=== PATIENT | female | born 1965 | race Caucasian/White ===

== ENCOUNTER 2023-01-11 02:55 | Emergency (ER) | payer OTHER ==
[~2023-01-11] VITALS: Ht 165.1 cm; Wt 82.6 kg
[~2023-01-11 02:55] MED LIST: ASPIRIN EC81 MG PO; BIOTIN1 M1 PO; CALCIUM600 MG PO; CITALOPRAM HBR20 MG PO; EVENING PRIMRO500 MG PO; FISH OIL 1,0001 EAC1 PO; FLAX SEED OIL1000 MG PO; LEVOTHYROXINE100 MCG PO; LIPITOR10 MG PO; METHOTREXATE2.5 MG PO; MINIVELLE1 EAC1 TD; NIACIN500 M1 PO; VITAMIN B12-FO1 EACH PO; VITAMIN C500 M4 PO
--- OUTSIDE RECORDS SUMMARY | 2023-01-11 02:58 | XMS ---
PreManage Notification: ALEC SHAY Security Die Sinker Apprentice Events No recent Security Events currently on file [facility] There are no care providers on record at this time. Alba has no Care Guidelines for this patient. Han VISIT COUNT (12 MO.) 1 LOIDA Reed TOTAL 1 NOTE: Visits indicate total known visits. ED/C VISIT TRACKING (12 MO.) 01/11/2023 02:56 LOIDA Cortés [place] TYPE: Emergency COMPLAINT: - VOMITING BLOOD INPATIENT VISIT TRACKING (12 MO.) No inpatient visits to display in this time frame [email or web address]
[2023-01-11 03:26] LABS: BASOPHILS 0.9 % (0-2); EOSINOPHILS 0.4 % (0-6); HEMATOCRIT 30.4 % (35.0-50.0); HEMOGLOBIN 9.8 g/dL (12.0-18.0); LYMPHOCYTES 22.1 % (24-44); MCH 27.5 (27-36); MCHC 32.3 g/dl (30-36); MCV 85.2 fl (81-99); MONOCYTES 8.1 % (0-12); NEUTROPHILS 68.5 % (39-80); PLATELET COUNT 100 K/uL (140-440); RBC 3.57 M/ul (4.3-5.7); RDW 15.1 (10.5-15.0)
[2023-01-11 03:29] LABS: INR 1.29 (0.80-1.30); PROTIME 15.5 Sec (11.2-14.2)
[2023-01-11 03:35] LABS: ALBUMIN 2.7 g/dL (3.4-5.0); ALBUMIN/GLOBULIN RATIO 0.73 (1.1-2.4); ANION GAP 10.8 (7-21); BILIRUBIN, TOTAL 0.5 ng/dL (0.2-1.0); CALCIUM 8.1 mg/dL (8.5-10.1); CREATININE, SERUM 0.72 mg/dL (0.55-1.02); POTASSIUM 3.8 mmol/L (3.5-5.1); PROTEIN, TOTAL 6.4 g/dL (6.4-8.2)
[2023-01-11 04:23] LABS: HEMATOCRIT 28.3 % (35.0-50.0); HEMOGLOBIN 9.2 g/dL (12.0-18.0); MCH 27.6 (27-36); MCHC 32.6 g/dl (30-36); MCV 84.7 fl (81-99); RBC 3.34 M/ul (4.3-5.7); RDW 15.1 (10.5-15.0)
[2023-01-11] MEDS ORDERED: ONDANSETRON ODT8 MG PO ×2 (04:47→05:17)
[2023-01-11] MEDS ORDERED: PROTONIX40 MG PO ×2 (04:47→05:17)
[2023-01-11] MEDS ORDERED: LEVOTHYROXINE88 MC1 (04:54)
[2023-01-11] MEDS ORDERED: GABAPENTIN300 MG (04:56)
[2023-01-11] MEDS ORDERED: CYCLOSPORINE1 EACH (04:57)
[2023-01-11] MEDS ORDERED: FLOVENT DISKUS50 MCG (04:57)
[2023-01-11] MEDS ORDERED: HYDROXYCHLOROQ200 MG (04:58)
[2023-01-11] MEDS ORDERED: DOTTI1 EAC4 (04:59)
[2023-01-11] MEDS ORDERED: URSODIOL300 MG (04:59)
[2023-01-11] MEDS ORDERED: LIOTHYRONINE SO5 MCG (05:00)
[2023-01-11] MEDS ORDERED: PRAMIPEXOLE0.125 MG (05:01)
[2023-01-11 05:09] VITALS: BP 118/56
== END 2023-01-11 05:19 | disposition home or self-care (01) ==
LOC: ED 02:55
PROVIDERS: Family Medicine
DX: K22.6 Gastro-esophageal laceration-hemorrhage syndrome (principal); Z88.2 Allergy status to sulfonamides; Z88.8 Allergy status to other drugs, medicaments and biological substances; Z79.82 Long term (current) use of aspirin; Z79.899 Other long term (current) drug therapy; Z79.890 Hormone replacement therapy
CPT/HCPCS: 36415; 80053; 85025; 85027; 85610; 96374; 96375; 99284-25; C9113; J0780; J2405

== ENCOUNTER 2023-03-26 07:36 | Day surgery (SDC) | payer OTHER, BC ==
[~2023-03-26 07:36] MED LIST changes: +ADVANCED PROBI625 MG PO; +ALPRAZOLAM0.25 MG PO; +CRANBERRY250 MG PO; +CYCLOSPORINE1 EACH; +CYTOMEL5 MCG PO; +DOTTI1 EAC4; +FLOVENT DISKUS50 MCG; +FLOVENT DISKUS50 MCG INH; +FOLIC ACID1 MG PO; +GABAPENTIN300 MG; +HYDROXYCHLOROQ200 MG; +LEVOTHYROXINE88 MC1; +LIOTHYRONINE SO5 MCG; +MAGNESIUM250 MG PO; +MILK THISTLE175 MG PO; +MINIVELLE1 EAC3 TD; +ONDANSETRON ODT8 MG PO; +POTASSIUM; +PRAMIPEXOLE0.125 MG; +PROTONIX40 MG PO; +URSODIOL300 MG; +VALACYCLOVIR1000 MG PO; +VENTOLIN HFA18 GM INH; +ZINC50 MG PO; +[UNRECOGNIZED DRUG - OTHER]
[2023-03-26 07:56] VITALS: BP 144/79
[2023-03-26 10:28] VITALS: BP 117/67
--- NOTE | 2023-03-26 10:32 | NUR ---
03/26/23 1032 Sheets,Madelin 1001 PT ARRIVED TO PACU AND EASILY WAKES. PT REORIENTED TO PACU. PT DENEIS CONCERNS. 1027 PT WAKES AND HOB INCREASED, PT SIPPING SODA PER REQUEST. AT BEDSIDE AND ALL QUESTIONS ANSWERED.
--- NOTE | 2023-03-26 13:14 | OR ---
[facility] [address], [place] [address] Signed DATE OF OPERATION: 03/26/2023 SURGEON: Isrrael Thomas MD PREOPERATIVE DIAGNOSES: 1. Hematemesis in November or December of 2022. 2. Sjgren's syndrome. 3. Primary biliary cirrhosis. 4. Pulmonary fibrosis. POSTOPERATIVE DIAGNOSES: 1. Moderate esophageal varices. 2. Moderate gastroduodenitis. 3. Periampullary duodenal diverticulum. PROCEDURE: EGD with CLOtest and biopsies of the antrum. ESTIMATED BLOOD LOSS: None. INDICATIONS: Alec is a 58-year-old female with a long history of Sjogren's syndrome. She now has pulmonary fibrosis along with her primary biliary cirrhosis. She had an ERCP in the past requiring a sphincterotomy. They were trying to evaluate her bile ducts. She went through quite a bit of pancreatitis and ended up in the hospital. She told me she is adopted and has no knowledge of her family history. Our local gastroenterologists have all retired and moved away. Therefore, she has been asked to see me as a local general surgeon for consideration of a repeat upper endoscopy. We tried to track down her previous records without much success. Unfortunately, that office is now in transition. No further hematemesis. She stopped the aspirin. She took Protonix for a little while, but then she discontinued it. Overall, she thinks she is doing fine. In the office, I gave her a pamphlet on upper endoscopy. We had reviewed that together in detail. She understands there is risk including, but not limited to gas bloating, crampy abdominal pain, bleeding, perforation requiring surgery, and missed diagnosis. We also reviewed the need for IV conscious sedation. She understands an adult person has to take her home afterwards. In the meantime, she has been trying to find a assembler clip on sunglasses in [facility] or [facility] without success. She had expressed understanding and wished to proceed. Electronically Signed By: ISRRAEL THOMAS MD 03/26/23 1314 PATIENT NAME: ALEC SHAY OPERATIVE REPORT DATE OF : 61 REPORT #: [id number] PHYSICIAN: ISRRAEL THOMAS MD PCP: MARCIA RANKIN REPORT IS CONFIDENTIAL AND NOT TO BE RELEASED WITHOUT AUTHORIZATION [facility] [address] [place] [id number] Signed PROCEDURE NOTE: Alec was taken into our endoscopy suite and placed in the supine semi-recumbent position. The posterior oropharynx was anesthetized with lidocaine spray. A bite block was utilized for the case. She was given a total of 6 mg of Versed and 100 mcg of fentanyl to cover the case. The adult gastroscope was introduced and advanced under direct visualization of the camera. She has moderately prominent distal esophageal varices. We passed the scope out into her stomach and into the duodenum. She has some inflammatory changes and congestion in the duodenum, pyloric bulb and her stomach. It looks like she has a periampullary duodenal diverticulum. It looks like we could see a small ampulla on the edge of that diverticulum. Back in the stomach, we took a biopsy of the antrum for CLOtest as well as pathologic review. Upon retroflexion of the scope, we do not see an obvious hiatal hernia. No obvious gastric varices. The scope was withdrawn up to the area of the GE junction, which was compliant without stricture. She has varices starting at the GE junction and traveling up through the distal esophagus. She has a standard three columns and some additional smaller varices as well. We have no carver hand at our hospital, so that was not performed. The middle and upper esophagus were unremarkable. After this, the gas was suctioned out and the gastroscope removed. Alec tolerated the procedure quite well. RECOMMENDATIONS: Alec will follow up in my office in 7 to 14 days to review her results. She needs to pursue assembler clip on sunglasses in our region. She would be crabtree at some point to see the meat loiner at [facility] and [facility] as she may or may not be a candidate for liver transplant at some point in her life. Isrrael Thomas MD ALB/MODL /[id number] cc: GALE Aguila MD Copies: MARCIA RANKIN Electronically Signed By: ISRRAEL THOMAS MD 03/26/23 1314 PATIENT NAME: ALEC SHAY OPERATIVE REPORT DATE OF : 61 REPORT #: [id number] PHYSICIAN: ISRRAEL THOMAS MD PCP: MARCIA RANKIN REPORT IS CONFIDENTIAL AND NOT TO BE RELEASED WITHOUT AUTHORIZATION [address] [address] Signed ISRRAEL THOMAS MD ~ Electronically Signed By: ISRRAEL THOMAS MD 03/26/23 1314 PATIENT NAME: ALEC SHAY OPERATIVE REPORT DATE OF : 61 REPORT #: [id number] PHYSICIAN: ISRRAEL THOMAS MD PCP: MARCIA RANKIN REPORT IS CONFIDENTIAL AND NOT TO BE RELEASED WITHOUT AUTHORIZATION
--- NOTE | 2023-03-29 15:05 | PATH ---
[facility] [address] [facility] [place], [place] [address] Signed SPECIMEN(S): A ANTRUM/ANTRAL BIOPSY SPECIMEN SOURCE: A. ANTRUM/ANTRAL BIOPSY CLINICAL HISTORY: Hematemesis, Sjogren's syndrome/gastroduodenitis, esophageal varices FINAL PATHOLOGIC DIAGNOSIS: Antrum / antral biopsy: - Benign gastric-type mucosa with mild chronic gastritis. - A Helicobacter pylori immunostain is negative for organisms. VR:[facility] MICROSCOPIC EXAMINATION: Histologic sections of all submitted blocks are examined by light microscopy. These findings, together with the gross examination, support the pathologic diagnosis. A Helicobacter pylori immunostain is performed with appropriate positive and negative controls on block A1 and is negative for organisms. JVR:[facility] GROSS DESCRIPTION: The specimen, labeled and designated "Shay, biopsy, antrum," is received in formalin and consists of one hassan soft tissue fragment, 0.4 cm. Entirely submitted in (A1). (under the direct supervision of a pathologist) The Gross Description was prepared using a voice recognition system. The report was reviewed for accuracy; however, sound-alike word errors, addition and/or deletions may occur. If there is any question about this report, please contact Client Services. ADDITIONAL NOTES: Immunohistochemical and/or in situ hybridization studies if performed in this case included appropriate positive controls that reacted as expected. This test was developed and its performance characteristics determined by [facility]. It has not been cleared or approved by the U.S. Food and Drug Administration. The FDA has determined that such clearance or approval is not necessary. This test is used for clinical purposes. It should not be regarded as investigational or for research. [facility] is certified under the PATIENT NAME: ALEC SHAY PATHOLOGY DATE OF : 61 REPORT #: [id number] PHYSICIAN: [facility] PATH[facility] PCP: MARCIA RANKIN REPORT IS CONFIDENTIAL AND NOT TO BE RELEASED WITHOUT AUTHORIZATION [facility] [address] [place], [place] [address] Signed Clinical Laboratory Improvement Amendments of 1988 (CLIA) as qualified to perform high complexity clinical laboratory testing. PERFORMING LABORATORY: Technical component was performed by [facility], [address] [place] [address] (CLIA# [id number]). Professional interpretation was performed by [facility], [address] [place] [id number] (CLIA#: [id number]). Diagnostician: Brian Farmer MD Pathologist Electronically Signed 03/29/2023 Copies: ~ PATIENT NAME: ALEC SHAY PATHOLOGY DATE OF : 61 REPORT #: [id number] PHYSICIAN: [facility] PCP: MARCIA RANKIN REPORT IS CONFIDENTIAL AND NOT TO BE RELEASED WITHOUT AUTHORIZATION
== END 2023-03-26 10:45 | disposition home or self-care (01) ==
LOC: DS 07:36
PROVIDERS: ATTEND Colon & Rectal Surgery
PROC: 0DB78ZX Excision of Stomach, Pylorus, Via Natural or Artificial Opening Endoscopic, Diagnostic (ICD-10-PCS; principal; 2023-03-26 09:00)
DX: K29.90 Gastroduodenitis, unspecified, without bleeding (principal); I85.00 Esophageal varices without bleeding; J84.10 Pulmonary fibrosis, unspecified; K74.5 Biliary cirrhosis, unspecified; M35.00 Sjogren syndrome, unspecified; E03.9 Hypothyroidism, unspecified; Z79.899 Other long term (current) drug therapy; Z88.2 Allergy status to sulfonamides; Z88.1 Allergy status to other antibiotic agents
CPT/HCPCS: 36415; 87077; 99153; G0500; J2250; J3010; J7121

== ENCOUNTER 2023-11-17 16:39 | Inpatient (IN) | payer OTHER, BC ==
[~2023-11-17] VITALS: Ht 165.1 cm; Wt 85.5 kg
[~2023-11-17 16:39] MED LIST changes: -CYCLOSPORINE1 EACH; +CYCLOSPORINE1 EACH OU; -GABAPENTIN300 MG; +GABAPENTIN300 MG PO; -HYDROXYCHLOROQ200 MG; +HYDROXYCHLOROQ200 MG PO; -URSODIOL300 MG; +URSODIOL300 MG PO
[2023-11-17] MEDS ORDERED: DOXYCYCLINE MO100 MG PO (17:02)
[2023-11-17] MEDS ORDERED: FLUTICASONE-SA1 EAC4 (17:05)
[2023-11-17] MEDS ORDERED: ACTEMRA AC162 MG/0.9 SQ (17:06)
[2023-11-17] MEDS ORDERED: XDEMVY10 ML OU (17:06)
[2023-11-17] MEDS ORDERED: MIEBO 100% EYE D3 ML OU (17:06)
[2023-11-17] MEDS ORDERED: SODIUM CHLORIDE 0.9% 1,000 ML IV ONE (18:00)
[2023-11-17] MEDS ORDERED: CEFTRIAXONE/SODIUM CHLORIDE 2 GM/100 ML PIGGYBACK IV ONE (18:00)
[2023-11-17] MEDS ORDERED: DAPTOmycin 500 MG/10 ML VIAL IV ONE (18:00)
[2023-11-17 18:07] LABS: BILIRUBIN, URINE NEGATIVE (negative); BLOOD/HGB, URINE NEGATIVE (Negative); KETONE, URINE NEGATIVE (Negative); LEUK ESTERASE, URINE NEGATIVE (negative); NITRITE, URINE NEGATIVE (negative)
[2023-11-17 18:10] LABS: PARTIAL THROMBOPLASTIN TIME 35.5 Sec (22.9-41.3)
[2023-11-17 18:13] LABS: HEMOGLOBIN 14.6 g/dL (12.0-18.0); RDW 14.4 (10.5-15.0)
[2023-11-17 18:14] LABS: ALBUMIN 3.1 g/dL (3.4-5.0); ALBUMIN/GLOBULIN RATIO 0.91 (1.1-2.4); ANION GAP 6.9 (7-21); BILIRUBIN, TOTAL 1.1 ng/dL (0.2-1.0); BUN/CREATININE RATIO 15.58 (6.0-28.6); CALCIUM 8.5 mg/dL (8.5-10.1); CREATININE, SERUM 0.77 mg/dL (0.55-1.02); POTASSIUM 3.9 mmol/L (3.5-5.1); PROTEIN, TOTAL 6.5 g/dL (6.4-8.2)
[2023-11-17 18:15] LABS: BASOPHILS 0.3 % (0-2); EOSINOPHILS 3.7 % (0-6); HEMATOCRIT 43.1 % (35.0-50.0); LYMPHOCYTES 10.6 % (24-44); MCHC 33.9 g/dl (30-36); MCV 97.2 fl (81-99); MONOCYTES 4.8 % (0-12); NEUTROPHILS 80.6 % (39-80); RBC 4.43 M/ul (4.3-5.7)
[2023-11-17 18:18] LABS: INR 1.27 (0.80-1.30); PROTIME 15.2 Sec (11.2-14.2)
[2023-11-17 18:30] LABS: PLATELET COUNT 41 K/uL (140-440)
[2023-11-17 18:38] LABS: LACTIC ACID, BLOOD 0.7 mmol/L (0.4-2.0)
[2023-11-17] MEDS ORDERED: ondansetron HCL 4 MG/2 ML VIAL IV PRN (19:30)
[2023-11-17] MEDS ORDERED: OXYCODONE HCL 5 MG TAB PO PRN (19:30)
[2023-11-17] MEDS ORDERED: SODIUM CHLORIDE 0.9% 1,000 ML IV SCH (19:30)
--- NOTE | 2023-11-17 20:06 | NUR ---
RECEIVED VERBAL REPORT FROM ED RN AND pt TRANSFERRED VIA ED BED FROM ED TO MS ROOM #113. pt ORIENTED TO ROOM, CALL LIGHT AND PERSONAL BELONGINGS IN REACH. pt'S HOME MEDICATIONS MIXED IN WHITE PILL BOTTLE IN pt ROOM LOCK BOX. PER pt-MEDS ARE MIX OF TYLENOL, MIRAPEX, AND GABAPENTIN. IV FLUIDS INFUSING DIRECTED, IV SITE WNL. ADMISSION COMPLETED. FRESH ICE WATER AND SODA/JUICE DRINK PROVIDED. PRIMARY RN HILARIO IN ROOM COMPLETING EVENING CARES/ASSESSMENT.
[2023-11-17 20:09] VITALS: BP 134/64
[2023-11-17] MEDS ORDERED: ALBUTEROL SULFATE 0.083% 3 ML VIAL INH PRN (20:45)
[2023-11-17] MEDS ORDERED: MELATONIN 3 MG TAB PO PRN (21:00)
--- NOTE | 2023-11-17 21:14 | NUR ---
COOPERATIVE WITH ADMIT QUESTIONS AND ASSESSMENT. ON ROOM AIR, ALERT AND ORIENTED. ALLEVYN APPLIED TO SCABS LEFT FOREARM, L FIRST FINGER R FINGERS, CELLULITIES REDNESS/ERYTHEMA LLE, MARKED. TOLERATD WELL, FAINT PULSE, VERY TENDER TO TOUCH. WAS MEDICATED WITH 5MG OXYCODONE PO. UP TO BSC, SBA, VOIDED, HAD LARGE FORMED BM. BACK TO BED. TOLERATED WELL. IVF INFUSING RAC. BROUGHT FOOD, ATE 100%, TOLERATD WELL, NO N/V. PT HAS LUNG DZ AND USES PUFFER NOT AVAILABLE FOR US AT [facility], WILL BRING. ORIENTED TO ROOM.
[2023-11-17 22:39] VITALS: BP 134/64
--- NOTE | 2023-11-17 22:40 | NUR ---
PT WALKED TO [facility] WITH FARM MANAGER EARLIER, DID OWN ORAL CARE, BACK TO BED, TOLERATED WWELL. AT THIS TIME, IN BED, TURNS AND REPOSITIONS SELF IN BED. ROOM AIR. IVF INFUSING RA, CELLULITIS L LEG, ELEVATED WITH PILLOWS. BED ALRM NURSING JUDGEMENT FOR TONIGHT ONLY
[2023-11-18] VITALS (9 sets, daily range): BP systolic 107–136; BP diastolic 55–63
--- NOTE | 2023-11-18 00:18 | NUR ---
Resting, eyes closed, on room air, R leg elevated in pillows. IVF infusing
--- NOTE | 2023-11-18 02:18 | NUR ---
Awake, cooperative with vitals and assessment. Up to BRP, tolerated fair, voided, medium yellow colored urine. does own hussain care. Back to bed. On room air, clear lungs, no SOB with exertion noted. IVF infusing RAC. Decreased erythema to upper L mid calf, as visually noted from marking. Elevated with pillows. No n/v. tolerating liquids well. no c/o pain
--- NOTE | 2023-11-18 05:23 | NUR ---
Used call light. Up to BRP with 1PA/FWW, voided QS, does own hussain care. Back to bed tolerated fair. Was medicated with 1 Oxycodoen 5mg po c/o 8/10 L leg pain, decreaesd erythema below knee area noted but increased on back of leg old and new areas marked, edema and tenderness still present. elevated in pillows, tolerating liquids well. IVF infusing, fresh fluids and warm blanket given on requests.
[2023-11-18 05:31] LABS: BASOPHILS 0.4 % (0-2); EOSINOPHILS 3.6 % (0-6); HEMATOCRIT 37.9 % (35.0-50.0); HEMOGLOBIN 12.9 g/dL (12.0-18.0); LYMPHOCYTES 13.6 % (24-44); MCH 33.1 (27-36); MCHC 34.1 g/dl (30-36); MCV 97.1 fl (81-99); NEUTROPHILS 77.4 % (39-80); RBC 3.91 M/ul (4.3-5.7); RDW 14.6 (10.5-15.0)
[2023-11-18 05:48] LABS: INR 1.4 (0.80-1.30); PROTIME 16.3 Sec (11.2-14.2)
[2023-11-18 05:56] LABS: ALBUMIN 2.5 g/dL (3.4-5.0); ALBUMIN/GLOBULIN RATIO 0.83 (1.1-2.4); ANION GAP 7.6 (7-21); BILIRUBIN, TOTAL 0.9 ng/dL (0.2-1.0); BUN/CREATININE RATIO 12.67 (6.0-28.6); CALCIUM 7.9 mg/dL (8.5-10.1); CREATININE, SERUM 0.71 mg/dL (0.55-1.02); MAGNESIUM 1.8 mg/dL (1.8-2.4); PHOSPHORUS, INORGANIC 4.1 mg/dL (2.5-4.9); POTASSIUM 3.6 mmol/L (3.5-5.1); PROTEIN, TOTAL 5.5 g/dL (6.4-8.2)
[2023-11-18 06:06] LABS: PLATELET COUNT 29 K/uL (140-440)
--- NOTE | 2023-11-18 07:15 | NUR ---
RECIEVED REPORT FROM KRISTY RICH. PT UP UTILIZING BR W/ MIKAELA.
--- NOTE | 2023-11-18 07:24 | NUR ---
DID HRLY ROUNDING ON PT. REFILLED HER WATER. I ASKED PT IF SHE WANTED TO BE UP IN THE CHAIR FOR BREAKFAST PT SAID NO THAT SHE WOULD FOR LUNCH. PT DIDNT NEED ANYTHING ELSE AND CALL LIGHT IS WITHIN REACH.
--- NOTE | 2023-11-18 08:20 | NUR ---
pt resting in bed. pt req home medications. up to br, 1 pa w fww. up to chair now. r. leg elevated w 2 pillows. pt declined meal tray and states "i asked my to bring in oatmeal". pt provided menu. declines any needs at this time, call light in reach.
--- NOTE | 2023-11-18 09:50 | NUR ---
PATIENT ALERT AND ORIENTED, SITTING UP IN RECLINER. HER SPOUSE IS IN ROOM WELL. PATIENT LIVES IN HOUSE, HAS STAIRS. STATES SHE HAS NO ISSUES WITH THE STAIRS. SHE HAS NO DME. SHE REMAINS ABLE TO DRIVE AT [place]EL[place]. PATIENT HAS NO FINANCIAL DIFFICULTIES. SHE REMAINS ABLE TO PAY UTILITIES, OBTAIN FOOD AND MEDICATIONS. PATIENT CURRENTYL HAS NO NEEDS AT HOME AND WILL NOTIFY STAFF IF THAT CHANGES.
--- NOTE | 2023-11-18 09:57 | NUR ---
UR CLINICAL REVIEW[place] [facility] [place] [facility] INPT 11/17/23 @ 1927 ORDER MATCHES REG RECORDS SENT TO [facility] FOR AUTH REVIEW DISCHARGE TO HOME WHEN STABLE 11/21/23
[2023-11-18] MEDS ORDERED: OXYCODONE HCL 5 MG TAB PO PRN (10:00)
--- NOTE | 2023-11-18 10:07 | NUR ---
PATIENT GIVEN 10MG OF PO OXYCODONE FOR 7/10 LEFT LEG PAIN.
[2023-11-18] MEDS ORDERED: PREDNISONE20 MG PO (10:35)
--- NOTE | 2023-11-18 11:09 | NUR ---
PT UP TO BR 1 PA W FWW. BACK TO CHAIR. R. AC IV DC'D DUE TO IV OCCLUSION OCCURING DUE TO BEING POSITIONAL. IV STARTED L. WRIST 20 G, 2 ATTEMPTS. ASSESSMENT COMPLETE. DENIES ANY FURTHER NEEDS, CALL LIGHT IN REACH.
[2023-11-18] MEDS ORDERED: PRAMIPEXOLE D0.25 MG PO (11:10)
[2023-11-18] MEDS ORDERED: NADOLOL40 MG PO (11:17)
[2023-11-18] MEDS ORDERED: MONTELUKAST SOD10 MG PO (11:19)
[2023-11-18] MEDS ORDERED: SYNTHROID88 MCG PO (11:22)
[2023-11-18] MEDS ORDERED: PANTOPRAZOLE SO40 MG PO (11:24)
--- NOTE | 2023-11-18 11:33 | NUR ---
PLAN TO KEEP PATIENT OVERNIGHT, RESCHEDULED MAMMOGRAM FOR Nov.26 AT 1200. PATIENT NOTIFIED. Dre PEARSON RN, NOTIFIED WELL.
[2023-11-18] MEDS ORDERED: PHARMACY RENAL DOSE ADJUSTMENT 1 DOSE MISC PO SCH (12:00)
[2023-11-18] MEDS ORDERED: ALBUTEROL SULFATE 0.083% 3 ML VIAL INH SCH ×2 (12:30)
[2023-11-18] MEDS ORDERED: BUDESONIDE 0.5 MG/2 ML VIAL INH SCH ×2 (12:30)
--- NOTE | 2023-11-18 12:56 | NUR ---
PT CALL LIGHT ANSW. PT BACK TO CHAIR FROM BR. Makayla BRIGGS W PILLOW. PT DENIES ANY NEEDS, CALL LIGHT
--- NOTE | 2023-11-18 13:06 | NUR ---
EYE DROPS ADMIN PER EMAR. NEW BAG OF NS HUNG AT 125 ML/HR. DENIES ANY FURTHER NEEDS, CALL LIGHT IN REACH
--- NOTE | 2023-11-18 13:48 | NUR ---
PT WAS UP IN CHAIR WHEN I TOOK HER VITALS AND ASKED IF I CAN HELP HER GET BACK TO BED. PT DIDNT NEED ANYTHING ELSE AND CALL LIGHT IS WITHIN REACH.
[2023-11-18] MEDS ORDERED: PANTOPRAZOLE SODIUM 40 MG TABEC PO SCH (14:12)
--- NOTE | 2023-11-18 14:22 | NUR ---
VISITED DURING SPIRITUAL CARE ROUNDS. PT TALKED OF FAMILY; STRONG RELATIONAL RESOURCES EVIDENCED, REQUESTED PRAYER. CHILDHOOD DEVELOPMENT TEACHER PROVIDED SUPPORTIVE PRESENCE, HOSPITALITY, PRAYER. PT EXPRESSED GRATITUDE.
--- NOTE | 2023-11-18 14:40 | NUR ---
MED REC COMPLETE
--- NOTE | 2023-11-18 15:17 | NUR ---
PT RESTING IN BED. ASSESSMENT COMPLETE. PT C/O PAIN 09/01 IN LLE. PAIN MEDICATION ADMIN PER EMAR. DENIES ANY NEEDS AT THIS TIME, CALL LIGHT IN REACH.
[2023-11-18] MEDS ORDERED: PRAMIPEXOLE DIHYDROCHLORIDE 0.5 MG TAB PO SCH (17:00)
[2023-11-18] MEDS ORDERED: PRAMIPEXOLE DIHYDROCHLORIDE 0.25 MG TAB PO SCH (17:00)
--- NOTE | 2023-11-18 17:33 | NUR ---
PT IN BED, FRIEND VISITNG AT BEDSIDE. MEDICATION ADMIN PER EMAR. PT UP TO BR, SBA W FWW. BACK TO BED. MEAL TRAY AT SIDE OF BED. DENIES ANY NEEDS AT THIS TIME, CALL LIGHT IN REACH
[2023-11-18] MEDS ORDERED: DAPTOmycin 500 MG/10 ML VIAL IV SCH (18:00)
[2023-11-18] MEDS ORDERED: CEFTRIAXONE/SODIUM CHLORIDE 2 GM/100 ML PIGGYBACK IV SCH (18:00)
--- NOTE | 2023-11-18 18:22 | NUR ---
IV PUMP INFUSED AMOUNT CLEARED AND DOCUMENTED IN I'S AND O'S
--- NOTE | 2023-11-18 20:14 | NUR ---
c/o 7/10 L leg pain, medicated with Oxycodone 10mg po. Up to BRP, 1PA/FWW, L leg painful tender, erythema present, improved from this am but more redness noted back of leg past marking done on admit. On room air. tolerating liquids well.
[2023-11-18] MEDS ORDERED: HYDROXYCHLOROQUINE SULFATE 200 MG TAB PO SCH (21:00)
[2023-11-18] MEDS ORDERED: GABAPENTIN 300 MG CAP PO SCH ×2 (21:00)
--- NOTE | 2023-11-19 00:17 | NUR ---
ASSISTED TO BRP, VOIDED, BACK TO BED, TOLERATED FAIR. 1PA/FWW, EDEMA/ERYTHEMA TO LLE NO CHNGES, ELEVATED IN PILLOWS. IVF INFUSING
--- NOTE | 2023-11-19 02:01 | NUR ---
RESTING, NO S/SX DISTRESS, IVF INFUSING, L LEG ELEVATED
[2023-11-19 04:31] VITALS: BP 140/73
[2023-11-19 05:45] LABS: HEMATOCRIT 38.9 % (35.0-50.0); HEMOGLOBIN 13.1 g/dL (12.0-18.0); MCH 32.8 (27-36); MCHC 33.8 g/dl (30-36); MCV 97.2 fl (81-99); RDW 14.4 (10.5-15.0)
[2023-11-19 06:00] LABS: PLATELET COUNT 31 K/uL (140-440)
[2023-11-19] MEDS ORDERED: LIOTHYRONINE SODIUM 5 MCG TAB PO SCH (06:00)
[2023-11-19] MEDS ORDERED: LEVOTHYROXINE SODIUM 88 MCG TAB PO SCH (06:00)
[2023-11-19 06:01] VITALS: BP 140/73
[2023-11-19 06:04] LABS: ALBUMIN 2.5 g/dL (3.4-5.0); ALBUMIN/GLOBULIN RATIO 0.83 (1.1-2.4); ANION GAP 8.6 (7-21); BILIRUBIN, TOTAL 0.8 ng/dL (0.2-1.0); BUN/CREATININE RATIO 9.83 (6.0-28.6); CALCIUM 8.1 mg/dL (8.5-10.1); CREATININE, SERUM 0.61 mg/dL (0.55-1.02); POTASSIUM 3.6 mmol/L (3.5-5.1); PROTEIN, TOTAL 5.5 g/dL (6.4-8.2)
[2023-11-19 06:19] LABS: BANDS, MANUAL DIFF 3; BASOPHILS, MANUAL DIFF 1; EOSINOPHILS, MANUAL DIFF 6; LYMPHOCYTES, MANUAL DIFF 12; MONOCYTES, MANUAL DIFF 3; NEUTROPHILS, MANUAL DIFF 75
--- NOTE | 2023-11-19 07:17 | NUR ---
BEDSIDE REPORT RECEIVED FROM KRISTY RIHC. PT AWAKE AND ALERT IN BED. PT ASSISTED TO BATHROOM WITH SBA AND FWW. TOLERATES ACTIVITY WELL.
[2023-11-19] MEDS ORDERED: PRAMIPEXOLE DIHYDROCHLORIDE 0.25 MG TAB PO SCH (08:00)
--- NOTE | 2023-11-19 08:17 | NUR ---
PATIENT IN CHAIR AT THIS TIME. CALL LIGHT WITHIN REACH, NO FURTHER NEEDS AT THIS TIME.
[2023-11-19] MEDS ORDERED: GABAPENTIN 300 MG CAP PO SCH (09:00)
[2023-11-19] MEDS ORDERED: CITALOPRAM HYDROBROMIDE 20 MG TAB PO SCH (09:00)
[2023-11-19 09:07] VITALS: BP 127/70
--- NOTE | 2023-11-19 09:20 | NUR ---
PATIENT IN CHAIR AT THIS TIME. VITALS AND I&O'S CHARTED. CALL LIGHT WITHIN REACH, NO FURTHER NEEDS AT THIS TIME.
--- NOTE | 2023-11-19 10:39 | NUR ---
PATIENT NEEDED TO USE BATHROOM. ORNITHOLOGY TEACHER ASSISTED PATIENT WITH IV POLE, ORNITHOLOGY TEACHER CHARTED WHAT PATIENT HAD VOIDED. CALL LIGHT WITHIN REACH, NO FURTHER NEEDS AT THIS TIME.
--- NOTE | 2023-11-19 11:40 | NUR ---
Spoke with Sheryl. She plans on dc today. She plans on IV antibiotics through OP in DS. Pt complains of foot still painful and has been using a walker here. She would like a walker at home. Dr. Calderon notified and ordered. Pt would like to use [facility]. I will send the face sheet, RX, H&P, and dc summary when Dr. Calderon completes for walker to be delivered at pts home.
--- NOTE | 2023-11-19 11:49 | NUR ---
PT RETURNS TO MED-SURG FROM IMAGING PROCEDURE. PT TO BED. CALL LIGHT AND BELONGNINGS IN REACH.
[2023-11-19] MEDS ORDERED: CEFTRIAXONE2 G1 IV (13:26)
[2023-11-19] MEDS ORDERED: DAPTOMYCIN500 MG IV (13:27)
[2023-11-19] MEDS ORDERED: OXYCODONE HCL5 MG PO (13:38)
[2023-11-19 14:07] VITALS: BP 130/72
--- NOTE | 2023-11-19 14:20 | NUR ---
DISCUSSED DISCHARGE INSTRUCTIONS WITH PT, PT VERBALIZES UNDERSTANDING. IV FLUHSED WITH 10 CC OF NS, CHG CAP PUT IN PLACE. IV WRAPPED WITH COBAN. EDUCATION PROVIDED TO PT ON IV CARE AT HOME, VERBALIZES UNDERSTANDING. PT TO RETURN TO DAY SURGERY TOMORROW FOR IV ANTIBIOTICS. PT DRESSES SELF.
--- NOTE | 2023-11-19 14:37 | NUR ---
PT LEAVES UNIT VIA WHEELCHAIR WITH BELONGINGS. PT ESCORTED BY THIS RN TO PRIVATE CAR DRIVEN BY SPOUSE.
[2023-11-20] MEDS ORDERED: CEFTRIAXONE/SODIUM CHLORIDE 2 GM/100 ML PIGGYBACK IV ONE (14:30)
== END 2023-11-19 14:37 | disposition home or self-care (01) | DRG 603 ==
LOC: ED 16:39 → MS 19:27
PROVIDERS: Emergency Medicine; ADMIT Family Medicine; ATTEND Family Medicine
DX: L03.116 Cellulitis of left lower limb (principal); J84.10 Pulmonary fibrosis, unspecified; E03.9 Hypothyroidism, unspecified; M35.00 Sjogren syndrome, unspecified; M06.9 Rheumatoid arthritis, unspecified; D69.59 Other secondary thrombocytopenia; K74.3 Primary biliary cirrhosis; Z88.8 Allergy status to other drugs, medicaments and biological substances; Z88.2 Allergy status to sulfonamides; Z88.0 Allergy status to penicillin; Z79.890 Hormone replacement therapy; Z79.51 Long term (current) use of inhaled steroids; Z85.850 Personal history of malignant neoplasm of thyroid
CPT/HCPCS: 36415; 73701; 80053; 81003; 83605; 83735; 84100; 85025; 85060; 85610; 85730; 93971; 94640; A9270; J0696; J0878; J7030; Q9967

== ENCOUNTER 2023-11-22 15:04 | Inpatient (IN) | payer OTHER, BC ==
[~2023-11-22] VITALS: Ht 165.1 cm; Wt 85.9 kg
[~2023-11-22 15:04] MED LIST changes: +ACTEMRA AC162 MG/0.9 SQ; +CEFTRIAXONE2 G1 IV; +DAPTOMYCIN500 MG IV; +DOXYCYCLINE MO100 MG PO; +FLUTICASONE-SA1 EAC4; +MIEBO 100% EYE D3 ML OU; +MONTELUKAST SOD10 MG PO; +NADOLOL40 MG PO; +OXYCODONE HCL5 MG PO; +PANTOPRAZOLE SO40 MG PO; +PRAMIPEXOLE D0.25 MG PO; +PREDNISONE20 MG PO; +SYNTHROID88 MCG PO; +XDEMVY10 ML OU
--- OUTSIDE RECORDS SUMMARY | 2023-11-22 15:07 | XMS ---
PreManage Notification: ALEC SHAY Security Credentialing Specialist Events No recent Security Events currently on file CRITERIA MET - [facility] - 2 Visits in 30 Days CARE PROVIDERS MARCIA RANKIN Physician Window Sash Installer Current PHONE: Unknown Alba has no Care Guidelines for this patient. Han VISIT COUNT (12 MO.) [address] 4 NOTE: Visits indicate total known visits. ED/C VISIT TRACKING (12 MO.) 11/22/2023 15:05 LOIDA [facility] [place] TYPE: Emergency COMPLAINT: - SKIN PROBLEM 11/17/2023 16:40 LOIDA [facility] [place] TYPE: Emergency COMPLAINT: - LEG SWELLING 05/28/2023 00:40 [facility] TYPE: Emergency DIAGNOSES: - Hematemesis 01/11/2023 02:56 LOIDA [facility]és [place] TYPE: Emergency COMPLAINT: - VOMITING BLOOD DIAGNOSES: - Allergy status to other drugs, medicaments and biological substances - Allergy status to sulfonamides - Gastro-esophageal laceration-hemorrhage syndrome - Hematemesis - Hormone replacement therapy - exterminator helper (current) use of aspirin - Other termite control servicer (current) drug therapy INPATIENT VISIT TRACKING (12 MO.) 11/17/2023 19:27 [facility] [place] TYPE: Medical Surgical COMPLAINT: - LEFT LOWER EXTREMITY CELLULITIS DIAGNOSES: - Allergy status to other drugs, medicaments and biological substances - Allergy status to other drugs, medicaments and biological substances - Allergy status to penicillin - Allergy status to penicillin - Allergy status to sulfonamides - Allergy status to sulfonamides - Cellulitis of left lower limb - Hormone replacement therapy - Hormone replacement therapy - Hypothyroidism, unspecified - Hypothyroidism, unspecified - senior care (current) use of inhaled steroids - senior care (current) use of inhaled steroids - Other secondary thrombocytopenia - Other secondary thrombocytopenia - Personal history of malignant neoplasm of thyroid - Personal history of malignant neoplasm of thyroid - Primary biliary cirrhosis - Primary biliary cirrhosis - Pulmonary fibrosis, unspecified - Pulmonary fibrosis, unspecified - Rheumatoid arthritis, unspecified - Rheumatoid arthritis, unspecified - Sjogren syndrome, unspecified - Sjogren syndrome, unspecified 05/28/2023 01:35 [facility] TYPE: Medical Surgical COMPLAINT: - COUGHING UP BLOOD_coughing up blood DIAGNOSES: 0. Hemoptysis 1. Portal hypertension 2. Secondary esophageal varices with bleeding 3. Hemoptysis 4. Other cholangitis 5. Other diseases of stomach and duodenum 6. Thrombocytopenia, unspecified 7. Unspecified cirrhosis of liver 8. Polyp of colon 9. First degree hemorrhoids 10. Angiodysplasia of colon without hemorrhage 11. Sjogren syndrome, unspecified 12. Pulmonary fibrosis, unspecified 13. Rheumatoid arthritis, unspecified 14. Restless legs syndrome 15. Personal history of malignant neoplasm of thyroid 16. Acquired absence of other organs 17. Allergy status to narcotic agent 18. Allergy status to sulfonamides [email or web address]
[2023-11-22 15:40] LABS: EOSINOPHILS 4.7 % (0-6); HEMATOCRIT 39.5 % (35.0-50.0); HEMOGLOBIN 13.5 g/dL (12.0-18.0); LYMPHOCYTES 16.5 % (24-44); MCH 33.2 (27-36); MCHC 34.3 g/dl (30-36); MCV 96.6 fl (81-99); MONOCYTES 8.3 % (0-12); NEUTROPHILS 69.5 % (39-80); RBC 4.08 M/ul (4.3-5.7); RDW 14.3 (10.5-15.0)
[2023-11-22] MEDS ORDERED: PIPERACILLIN/TAZOBACTAM 3.375 GM in DEXTROSE 5% 100 ML IV ONE (15:45)
[2023-11-22] MEDS ORDERED: SODIUM CHLORIDE 0.9% 1,000 ML IV ONE (15:45)
[2023-11-22] MEDS ORDERED: DAPTOmycin 500 MG/10 ML VIAL IV ONE ×2 (15:45→16:00)
[2023-11-22 15:50] LABS: ALBUMIN 2.9 g/dL (3.4-5.0); ALBUMIN/GLOBULIN RATIO 0.88 (1.1-2.4); ANION GAP 9.7 (7-21); BILIRUBIN, TOTAL 1.2 ng/dL (0.2-1.0); BUN/CREATININE RATIO 10.29 (6.0-28.6); CALCIUM 8.5 mg/dL (8.5-10.1); CREATININE, SERUM 0.68 mg/dL (0.55-1.02); POTASSIUM 3.7 mmol/L (3.5-5.1); PROTEIN, TOTAL 6.2 g/dL (6.4-8.2)
[2023-11-22 15:53] LABS: INR 1.27 (0.80-1.30); LACTIC ACID, BLOOD 0.7 mmol/L (0.4-2.0); PROTIME 15.5 Sec (11.2-14.2)
[2023-11-22 15:54] LABS: PLATELET COUNT 46 K/uL (140-440)
[2023-11-22 17:39] VITALS: BP 145/67
[2023-11-22] MEDS ORDERED: methylPREDNISolone SOD SUCC 125 MG/2 ML VIAL IV ONE (19:15)
[2023-11-22] MEDS ORDERED: ALBUTEROL SULFATE 8 GM INH INH PRN (19:15)
[2023-11-22] MEDS ORDERED: INHALER, ASSIST DEVICES 1 EACH SPACER MISC ONE (19:15)
--- NOTE | 2023-11-22 19:34 | NUR ---
Pt report received from KRISTY Galvin at 1902 hours. Pt is resting in bed, supine, with LLE elevated on one pillow. 2 RN Skin assessment performed at this time. Pt up to void, SBA, back to bed, LLE elevated on 2 pillows. Pt requests cranberry juice and lemon jamul soda which was provided to her at this time. Pt is A&O. Call light in reach, side rails up, white board updated.
[2023-11-22] MEDS ORDERED: MONTELUKAST SODIUM 10 MG TAB PO SCH (21:00)
[2023-11-22] MEDS ORDERED: HYDROXYCHLOROQUINE SULFATE 200 MG TAB PO SCH (21:00)
[2023-11-22] MEDS ORDERED: GABAPENTIN 300 MG CAP PO SCH (21:00)
[2023-11-22 21:25] VITALS: BP 127/75
[2023-11-22] MEDS ORDERED: CEFAZOLIN SODIUM 2 GM/20 ML SYR IV SCH (22:00)
[2023-11-22 22:57] VITALS: BP 127/75
[2023-11-22] MEDS ORDERED: ACETAMINOPHEN 500 MG TAB PO PRN (23:45)
[2023-11-23] VITALS (10 sets, daily range): BP systolic 121–135; BP diastolic 56–67
--- NOTE | 2023-11-23 04:05 | NUR ---
RESTING, NO S/SX DISTRESS, LEG ELEVATED
[2023-11-23 05:26] LABS: BASOPHILS 0.1 % (0-2); EOSINOPHILS 0.1 % (0-6); HEMATOCRIT 39.9 % (35.0-50.0); HEMOGLOBIN 13.6 g/dL (12.0-18.0); LYMPHOCYTES 16.3 % (24-44); MCH 32.7 (27-36); MCV 96.4 fl (81-99); MONOCYTES 1.3 % (0-12); NEUTROPHILS 82.2 % (39-80); RBC 4.14 M/ul (4.3-5.7); RDW 14.5 (10.5-15.0)
[2023-11-23 05:38] LABS: ANION GAP 8.7 (7-21); BUN/CREATININE RATIO 10.6 (6.0-28.6); CALCIUM 8.8 mg/dL (8.5-10.1); CREATININE, SERUM 0.66 mg/dL (0.55-1.02); POTASSIUM 3.7 mmol/L (3.5-5.1)
[2023-11-23 05:46] LABS: PLATELET COUNT 33 K/uL (140-440)
[2023-11-23] MEDS ORDERED: LIOTHYRONINE SODIUM 5 MCG TAB PO SCH (06:00)
[2023-11-23] MEDS ORDERED: LEVOTHYROXINE SODIUM 88 MCG TAB PO SCH (06:00)
[2023-11-23] MEDS ORDERED: ALBUTEROL SULFATE 0.083% 3 ML VIAL INH PRN (07:15)
--- NOTE | 2023-11-23 07:15 | NUR ---
Spoke with pharmacy regarding pt medication interaction of home medications hydroxychloroquine and citalopram. Pharmacy gave ok to give since these are already her home medications.
--- NOTE | 2023-11-23 07:32 | NUR ---
RECEIVED REPORT FROM [facility] NURSE. PT IS A/O, RESPIRATIONS EVEN AND REGULAR. PT IS AWAKE SITTING UP IN BED. REPORTS THAT SHE FEELS HER LEG HAS IMPROVED GREATLY. DENIES NEEDS ATT. CALL LIGHT WITHIN REACH.
--- NOTE | 2023-11-23 08:00 | NUR ---
BOARD HAS BEEN UPDATED AND CALL LIGHT HAS BEEN PLACED WITHIN REACH
[2023-11-23] MEDS ORDERED: PANTOPRAZOLE SODIUM 40 MG TABEC PO SCH (09:00)
[2023-11-23] MEDS ORDERED: CITALOPRAM HYDROBROMIDE 20 MG TAB PO SCH (09:00)
[2023-11-23] MEDS ORDERED: methylPREDNISolone SOD SUCC 125 MG/2 ML VIAL IV ONE (10:15)
[2023-11-23] MEDS ORDERED: PHARMACY RENAL DOSE ADJUSTMENT 1 DOSE MISC PO SCH (12:00)
--- NOTE | 2023-11-23 12:30 | NUR ---
rounded on pt. pt is sitting up in chair, a/o, respirations even and regular. pt supplied with wipes per her request. pt denies any other needs att. pt is independent in room. call light within reach.
--- NOTE | 2023-11-23 14:46 | NUR ---
medications reconciled by pharmacy
--- NOTE | 2023-11-23 16:30 | NUR ---
ROUNDED ON PT. PT IS A/O, RESPIRATIONS EVEN AND REGULAR. PT IS SITTING UP IN BED AND REQUESTED ICE WATER. PT DENIES ANY OTHER NEEDS ATT. CALL LIGHT WITHIN REACH.
--- NOTE | 2023-11-23 18:50 | NUR ---
ROUNDED ON PT. PT IS UP TO RESTROOM. VISITOR AT BEDSIDE.
--- NOTE | 2023-11-23 21:30 | NUR ---
gets up to brp, voiding QS. Back to bed, Independent. Cooperative with assessment and vitals. On room air, clear lungs, abd soft, IRAJ, voiding QS yellow urine. bandaid give at her requests for scabbed area L index webbing. scabbing over Lforearm healing, c/o flushed face. L leg elevated in pillows, decreased edema and erythem except to L lateral area toes to heel. Medicated with Tylenol 500mg po per L leg pain. pleasnt and cooperative, fresh fluids and water at bedside
--- NOTE | 2023-11-24 00:01 | NUR ---
PT GIVEN SOUND MACHINE TO USE FOR THE NIGHT.
--- NOTE | 2023-11-24 00:35 | NUR ---
Resating, eyes closed, sound noise machine loaned to her at her request earlier. fluids at hands reach. L leg elevated
--- NOTE | 2023-11-24 03:20 | NUR ---
Resting, eyes closed, no s/sx distress. L leg elevated w pillows,
--- NOTE | 2023-11-24 04:37 | NUR ---
Resting, eyes closed, no s/sx distress, L leg elevated w pillows.
[2023-11-24 05:16] VITALS: BP 117/53
[2023-11-24 05:59] VITALS: BP 117/53
--- NOTE | 2023-11-24 06:23 | NUR ---
Awake, alert and oriented. L leg elevated in pillows, much improved decreased edema and erythema. SL patent. Independent in room, tolerating liquids well , voiding QS and no c/o pain.
--- NOTE | 2023-11-24 07:27 | NUR ---
pt in bed, hat drained, pt has no requests at this time. pt indp in room. call light within reach.
--- NOTE | 2023-11-24 07:33 | NUR ---
PT ALERT AND CHEERFUL AT TIME OF SHIFT REPORT. DENIES DISCOMFORTS OR NEEDS OF. STATES SHE IS GOING HOME TODAY. FRESH H20 TO BEDSIDE CALL LIGHT IN REACH
[2023-11-24] MEDS ORDERED: CEPHALEXIN500 M1 PO (08:21)
--- NOTE | 2023-11-24 08:37 | NUR ---
PT AGREES HOSPITALIST ANSWERED ALL HER QUESTIONS. DENIES QUESTIONS OR CONCERNS. EATING BREAKFAST DENIES PAIN OR DISCOMFORTS
[2023-11-24 09:17] VITALS: BP 136/67
[2023-11-24 09:29] VITALS: BP 136/67
== END 2023-11-24 09:40 | disposition home or self-care (01) | DRG 603 ==
LOC: ED 15:04 → MS 17:18
PROVIDERS: Emergency Medicine; ADMIT Internal Medicine; ATTEND Internal Medicine
DX: L03.116 Cellulitis of left lower limb (principal); M35.00 Sjogren syndrome, unspecified; M06.9 Rheumatoid arthritis, unspecified; J84.10 Pulmonary fibrosis, unspecified; G25.81 Restless legs syndrome; K74.5 Biliary cirrhosis, unspecified; K21.9 Gastro-esophageal reflux disease without esophagitis; E03.9 Hypothyroidism, unspecified; F41.9 Anxiety disorder, unspecified; D69.59 Other secondary thrombocytopenia; E53.8 Deficiency of other specified B group vitamins; T50.905S Adverse effect of unspecified drugs, medicaments and biological substances, sequela; Z90.49 Acquired absence of other specified parts of digestive tract; Z87.19 Personal history of other diseases of the digestive system; Z85.850 Personal history of malignant neoplasm of thyroid; Z79.890 Hormone replacement therapy
CPT/HCPCS: 36415; 80048; 80053; 83605; 85025; 85060; 85610; 85730; 93971; 94760; A9270; J0690; J0878; J2543; J2919; J7030